=== PATIENT | female | born 1945 | race Caucasian/White ===

== ENCOUNTER → 2023-07-04 09:02 | Outpatient (REF) | payer OTHER, SELFPAY | LOC: HWRAD 09:02 | PROVIDERS: ATTENDING PHYSICIAN Internal Medicine | DX: R05.1 Acute cough (principal) | CPT/HCPCS: 71046 ==

== ENCOUNTER → 2024-06-20 12:40 | Outpatient (REF) | payer OTHER, SELFPAY | LOC: HWRAD 12:40 | PROVIDERS: ATTENDING PHYSICIAN Family Medicine | DX: R06.02 Shortness of breath (principal); I48.21 Permanent atrial fibrillation; Z95.2 Presence of prosthetic heart valve; I50.32 Chronic diastolic (congestive) heart failure | CPT/HCPCS: 71046 ==